=== PATIENT | male | born 1990 | race Caucasian/White ===

== ENCOUNTER 2016-12-30 22:38 | Emergency (ER) | payer OTHER ==
[~2016-12-30] VITALS: Ht 182.9 cm; Wt 80.0 kg
[2016-12-30 22:40] VITALS: BP 122/80; PULSE 70; RESP 20; O2SAT 98
--- NOTE | 2016-12-30 22:48 | ED.REPORT ---
HPI-Abd Pain M Under 42 Date of Service Dec 30, 2016 ED Provider: Dr. Brodie Turner D.O. A healthy 26 year old male presents to the ED with waxing and waning lower abdominal pain onset 45 minutes prior to arrival. The pain radiates to his groin bilaterally. The patient denies testicle swelling or other symptoms. Nursing Notes Stated Complaint: GROIN,ABDOMINAL PAIN Chief Complaint: Male Abdominal Pain Nursing Notes Reviewed: Yes Allergies: Coded Allergies: No Known Allergies (Verified Allergy, Unknown, 03/27/15) General Time Seen by MD: 22:48 Chief Complaint Abdominal pain Hx Obtained From: Patient Arrived By: Walk-in Sudden in Onset?: Yes Onset Occurred: 31 - 45 minutes ago Symptom Duration: Since onset Location: : Abdomen lower Quality: Painful Radiation: : Inguinal left: Inguinal right Severity: Current: Moderate Severity: Maximum: Moderate Associated with: Denies: Fever, Vomiting Pertinent Negative: Relieved by nothing Recent Healthcare: No recent doctor visit Past Medical History Past Medical History denies Past Surgical History denies Smoking History Unknown if Ever Smoker Social History Other Social History: Good social support, Local resident Ambulatory Status Independent Review of Systems Constitutional: Denies: Fever Respiratory: Denies: Non-productive cough, Shortness of breath GI: Reports: Abdominal pain (Lower, with radiation to bilateral groin), Denies: Diarrhea, Vomiting Male: Denies Testicular swelling Complete sys rev & neg: except as marked. Physical Exam Initial Vital Signs Vital Signs (First) Date Time Temp Pulse Resp B/P Pulse Ox O2 Delivery O2 Flow Rate FiO2 12/30/16 22:40 37 70 20 122/80 98 Room Air Initial VS: Reviewed Head / Eyes: Atraumatic, Normocephalic ENT: Conjunctiva normal, No scleral icterus Neck: Supple, Full range of motion Skin: Warm, Dry, No cyanosis Neurologic: Alert, Oriented, Nonfocal Psychiatric: Mood/affect normal, Behavior normal, Normal thought content General/Constitutional: Awake, Alert, No acute distress Respiratory / Chest: Breath sounds NL, Breath sounds = bilat, No respiratory distress Cardiovascular: Heart rate NL, Regular rhythm, Heart sounds NL Abdomen: Soft Tenderness/Guarding/Rebound: Positive: Tender LLQ... Interpretation & Diagnostics URINE DIPSTICK: 1.020 sp gravity 5 pH Normal Glucose 4mg/dl Urobilinogen Otherwise Negative Lab Results Interpretation Result Diagram: 12/30/16 2338 12/30/16 2338 Test 12/30/16 23:38 12/31/16 01:40 White Blood Count 10.0th/mm3 (3.8-10.1) Red Blood Count 4.71mil/mm3 (4.40-5.80) Hemoglobin 13.9g/dL (13.8-17.2) Hematocrit 39.6% (41.0-50.0) Mean Corpuscular Volume 84.1fL (81-100) Mean Corpuscular Hemoglobin 29.5pg (27.0-35.0) Mean Corpuscular Hemoglobin Concent 35.1% (32.0-37.0) Red Cell Distribution Width 13.1% (12.3-15.4) Platelet Count 240bil/L (150-400) Neutrophils (%) (Auto) 49.8% (40-74) Lymphocytes (%) (Auto) 38.1% (14-46) Monocytes (%) (Auto) 10.2% (4-12) Eosinophils (%) (Auto) 1.5% (0-5) Basophils (%) (Auto) 0.2% (0-3) Sodium Level 142mEq/L (134-144) Potassium Level 3.7mEq/L (3.5-5.2) Chloride Level 104mEq/L (97-108) Carbon Dioxide Level 25mmol/L (18-29) Blood Urea Nitrogen 15mg/dL (6-20) Creatinine 0.86mg/dL (0.76-1.27) Estimat Glomerular Filtration Rate 116mL/min (>59) Glucose Level 110mg/dL (60-99) Calcium Level 9.3mg/dL (8.5-10.1) Magnesium Level 2.2mg/dL (1.6-2.6) Total Bilirubin 1.9mg/dL (0.0-1.2) Aspartate Amino Transf (AST/SGOT) 16U/L (0-50) Alanine Aminotransferase (ALT/SGPT) 11U/L (0-44) Alkaline Phosphatase 68U/L (25-150) Total Protein 7.4g/dL (6.4-8.4) Albumin 4.3g/dL (3.4-5.0) Lipase 18U/L (13-60) Hold [place] Top Tube Received (Received) Urine Color Yellow (YELLOW) Urine Appearance Clear (CLEAR,HAZY) Urine pH 6.0 (5.0-8.0) Urine Specific [place] 1.020 (1.003-1.035) Urine Protein Negativemg/dL (NEG,TRACE) Urine Glucose (UA) Negativemg/dL (NEGATIVE) Urine Ketones Negativemg/dL (NEGATIVE) Urine Occult Blood Negative (NEGATIVE) Urine Nitrite Negative (NEGATIVE) Urine Bilirubin Negative (NEGATIVE) Urine Urobilinogen 2.0mg/dL (NORMAL) Urine Leukocyte Esterase Negative (NEGATIVE) Urine RBC 0-2/hpf (0-2) Urine WBC 0-5/hpf (0-5) Urine Epithelial Cells Moderate/hpf (NONE-MOD) Urine Crystals None seen (NONE SEEN) Urine Bacteria None/hpf (NONE-FEW) Urine Hyaline Casts None/lpf (NONE) Urine Granular Casts None seen (NONE SEEN) Urine Waxy Casts None seen (NONE SEEN) Urine Red Blood Cell Casts None seen (NONE SEEN) Urine White Blood Cell Casts None seen (NONE SEEN) Urine Mucus None seen (None Seen) Urine Trichomonas None seen (NONE SEEN) Urine Yeast None (NONE SEEN) Urinalysis Comment CT Abd / Pelvis Interpretation CONCLUSION: No specific acute or active process. Moderate distention of entire colon with fecal material and gas. Any history of constipation? The appendix is not clearly identified. Transmitted to ED by Adan Sánchez M.D. at 12/31/16 - 1:14:04 AM PST Study type: Abdominal CT IV contrast, Abdom CT oral contrast Interpretation / Wet Read by: Interpret - Radiologist Re-Eval/Medical Decision Med Decision/Clinical Course No clinical signs of testicular torsion. Laboratory work is reassuring. CT scan abdomen and pelvis did not show any acute intra-abdominal pathology. She does not indicators of constipation. Perhaps this is why he is having the pain. I will place him on MiraLAX. Have close outpatient follow-up. At discharged his abdomen was soft and no longer tender. Re-Evaluation/Progress : Time of Eval: 02:05 Patient Status: Condition improved Re-Evaluation/Progress Note: Discussed with patient CT and lab results, diagnosis, and plan for discharge. Follow-up and return to the ER instructions given. Patient agrees with plan for care and all questions were addressed. Counseled Regarding: Diagnosis, Lab results, Need for follow-up, When/why to return to ED Patient Discharge & Departure Shift Change Sign-Out Response to Therapy: Improved Primary Impression: Constipation Constipation type: unspecified constipation type Qualified Code: K59.00 - Constipation, unspecified Additional Impression: Generalized abdominal pain Disposition: Home Discharge Condition All VS Reviewed: Yes Condition: Improved Patient Instructions: Constipation (ED) Additional Instructions: Thank you for entrusting us with your care. Your CT did not show signs of appendicitis. There was evidence of constipation. Your bilirubin was elevated. Discuss this with your primary care provider. Use MiraLAX twice daily for the next week. Liquid diet only for tonight. Call your primary care provider tomorrow for a follow-up appointment. Return to the ER with any new or worsening symptoms. Referrals: [facility]CP (PCP) [facility] Caroline Attestation Portions of this note were transcribed by Linette Hansen. I, Dr. Turner, personally performed the history, physical exam, and medical decision-making; I reviewed and confirmed the accuracy of the information in the transcribed note. Signed by: Caroline Arguelles, 12/31/2016, 02:35 copies to: [facility] Brodie Turner DO Dec 30, 2016 22:48 LINETTE HANSEN Dec 30, 2016 23:14
[2016-12-30] MEDS ORDERED: Ondansetron 2 mg/mL 2 mL Inj IVPUSH PRN (23:15)
[2016-12-30] MEDS ORDERED: Iohexol 300 mg/mL 30 mL Inj PO ONE (23:15)
[2016-12-30] MEDS ORDERED: HYDROmorphone 0.5 mg/0.5 mL iSecure Syringe IVPUSH PRN (23:15)
[2016-12-30 23:47] LABS: BASOPHILS % (AUTO) 0.2 % (0-3); EOSINOPHILS % (AUTO) 1.5 % (0-5); MONOCYTES % (AUTO) 10.2 % (4-12); Mean Corpuscular Hemoglobin 29.5 pg (27.0-35.0); Mean Corpuscular Volume 84.1 fL (81-100); NEUTROPHILS % (AUTO) 49.8 % (40-74); Platelet Count 240 bil/L (150-400)
[2016-12-31 00:27] LABS: Magnesium 2.2 mg/dL (1.6-2.6)
[2016-12-31 01:57] LABS: APPEARANCE,URINE CLEAR (CLEAR,HAZY); COLOR,URINE YELLOW (YELLOW); OCCULT BLOOD,URINE NEGATIVE (NEGATIVE)
[2016-12-31 02:15] VITALS: BP 114/65; PULSE 64; RESP 16; O2SAT 99
--- NOTE | 2017-01-06 14:41 | DRSVH ---
PROCEDURE: CT ABDOMEN AND PELVIS WITH CONTRAST ([id number]) INDICATIONS: rlq pain TECHNIQUE: After the administration of oral and intravenous contrast, 5 mm thick sections acquired from the diap hragms to the symphysis. 5 mm thick coronal and sagittal reformats were performed. For radiation do se reduction, the following was used: automated exposure control, adjustment of mA and/or kV accordi ng to patient size. COMPARISON: None. FINDINGS: Image quality: Excellent. ABDOMEN: Lung bases: Lung bases are clear. Heart size is normal. Solid organs: Liver and spleen are normal in size and enhancement. Diffuse fatty infiltration the li nini is noted. Gallbladder is within normal limits. Biliary system is non-dilated. Pancreas enhances normally. No adrenal nodules. Kidneys are normal in size and enhancement, without hydronephrosis. Peritoneum and bowel: Stomach, small bowel, and colon loops are normal in caliber and wall thickness . Large amount of stool seen throughout the colon. No free fluid or air. The appendix is not definite ly visualized. No inflammatory changes or free fluid noted adjacent to the cecum. Nodes and vessels: No retroperitoneal or mesenteric adenopathy. Aorta and inferior vena cava are no rmal in caliber. Miscellaneous: No ventral hernias. PELVIS: Genitourinary: Bladder wall thickness is normal. Miscellaneous: No inguinal hernias or adenopathy. Bones: No suspicious bony lesions. No vertebral body compression fractures. IMPRESSION: 1. No definite acute or active disease process. 2. No free fluid or air. 3. Severe fecal loading throughout the colon. Please correlate clinically. 4. Appendix is not directly visualized. Earliest manifestation of appendicitis cannot be excluded. 5. Hepatic steatosis. Dictated by: Twyla Jacob MD, PhD on 12/31/2016 at 8:47 Approved by: Twyla Jacob MD, PhD on 12/31/2016 at 8:51
== END 2016-12-31 02:16 | disposition home or self-care (01) ==
LOC: SED 22:38
DX: K59.00 Constipation, unspecified (principal); R10.84 Generalized abdominal pain
CPT/HCPCS: 36415; 74177; 80053; 81001; 83690; 83735; 85025; 96374; 96375; 99285; J1170; J2405; Q9967